=== PATIENT | female | born 1975 | race Caucasian/White ===

== ENCOUNTER 2017-08-19 14:53 | Emergency (ER) | payer MEDICAID, OTHER ==
[~2017-08-19] VITALS: Ht 157.5 cm; Wt 77.1 kg
[2017-08-19 15:04] VITALS: BP 147/85
--- NOTE | 2017-08-19 15:13 | NUR ---
PT C/O ABD PAIN 11/26 SUDDEN ONSET THIS MORNING AFTER EATING BREAKFAST. MOE N/V/D.
--- NOTE | 2017-08-19 15:32 | NUR ---
DR BEARD AT BEDSIDE TO [facility]
[2017-08-19] MEDS ORDERED: DICYCLOMINE HCL LIQUID 10 MG/5 ML UDC PO ONE (15:40)
[2017-08-19] MEDS ORDERED: LIDOCAINE VISCOUS 2% 20 ML UDC PO ONE (15:40)
[2017-08-19] MEDS ORDERED: ALUMINUM HYD/MAG/SIMETHICONE 30 ML UDC PO ONE (15:40)
--- NOTE | 2017-08-19 15:55 | NUR ---
PT VOMITTING IN EMESIS BAG AFTER PO MEDICATION GIVEN PER ORDER. DR BEARD NOTIFIED
[2017-08-19] MEDS ORDERED: KETOROLAC 60 MG/2 ML VIAL IM ONE (16:05)
--- NOTE | 2017-08-19 16:36 | NUR ---
Patient appears to be resting comfortably in bed. Vital Signs within normal limits. Respirations even and unlabored.
--- NOTE | 2017-08-19 16:45 | NUR ---
us at bedside
--- NOTE | 2017-08-19 18:42 | NUR ---
PT RESTING IN BED SOMFOTABLY, STATES HE PAIN IS DECREASED TO A BEARABLE LEVEL. PENDING REEVAL BY
[2017-08-19 18:45] VITALS: BP 129/78
--- NOTE | 2017-08-19 18:46 | NUR ---
Patient discharged with v/s stable. Written and verbal after care instructions given and explained. Patient alert, oriented and verbalized understanding of instructions. Ambulatory with steady gait. All questions addressed prior to discharge. ID band removed. Patient advised to follow up with PMD. Rx of MOTRIN, PROTONIX given. Patient educated on indication of medication including possible reaction and side effects. Opportunity to ask questions provided and answered.
== END 2017-08-19 18:46 | disposition home or self-care (01) ==
LOC: MED 14:53
DX: K29.70 Gastritis, unspecified, without bleeding (principal)
CPT/HCPCS: 76705; 81002; 81025; 96372; 99284; J1885; Q0092

== ENCOUNTER 2018-01-06 17:30 | Inpatient (IN) | payer MEDICAID ==
[~2018-01-06] VITALS: Ht 152.4 cm; Wt 74.4 kg
[2018-01-06 17:42] VITALS: BP 120/89
--- NOTE | 2018-01-06 18:34 | NUR ---
PT AMBULATES TO BED 2
--- NOTE | 2018-01-06 18:44 | NUR ---
C/O ABDOMINAL PAIN SINCE WEDNESDAY, LAST BM WEDNESDAY, HEAD ACHE, DIZZY HX; DENIES RX; DENIES
--- NOTE | 2018-01-06 19:15 | NUR ---
Pt report given to KATHY HANKS . Transfer of care at this time.
--- NOTE | 2018-01-06 19:18 | NUR ---
PT SITTING UP IN BED, VITALS STABLE. PAIN LEVEL IS 9/10. MD NOTIFED. COMFORT MEASURES OFFERRED. PT TOLERATED WELL.
[2018-01-06] MEDS ORDERED: NACL 0.9% 1,000 ML IV SCH (20:36)
[2018-01-06] MEDS ORDERED: KETOROLAC 30 MG/ML VIAL IVP ONE (20:40)
[2018-01-06] MEDS ORDERED: ONDANSETRON 4 MG/2 ML VIAL IVP ONE (20:40)
[2018-01-06 21:27] LABS: WHITE BLOOD COUNT (AUTO) 8.1 K/uL (4.8-10.8)
[2018-01-06 21:28] LABS: HEMATOCRIT 35.5 % (36-48); HEMOGLOBIN 11.9 g/dL (12.0-16.0); MEAN CORPUSCULAR HEMOGLOBIN 30 pg (27-31); MEAN CORPUSCULAR HGB CONC 34 g/dL (33-37); RED BLOOD CELL COUNT(AUTO) 3.99 MIL/uL (4.20-5.40)
[2018-01-06 21:29] LABS: BASOPHILS % (AUTO) 0.1 % (0.0-2.0); EOSINOPHILS % (AUTO) 0.2 % (0.0-4.0); LYMPHOCYTES % (AUTO) 2.2 % (20.5-51.1); MONOCYTES % (AUTO) 0.5 % (1.7-9.3); NEUTROPHILS % (AUTO) 5.1 % (42.2-75.2); PLATELET COUNT (AUTO) 295 K/uL (140-450)
--- NOTE | 2018-01-06 21:30 | NUR ---
PT RESTING IN BED, PAIN IS 0/10. VITALS STABLE.
[2018-01-06 21:42] LABS: ANION GAP 10.8 (8-16); CARBON DIOXIDE 25.4 mmol/L (21-32); CREATININE 0.6 mg/dL (0.6-1.3); POTASSIUM 4.2 mmol/L (3.5-5.1)
[2018-01-06 21:55] LABS: ALBUMIN 3.3 g/dL (3.4-5.0); TOTAL BILIRUBIN 0.2 mg/dL (0.0-1.0)
[2018-01-06] MEDS ORDERED: PIPERACILLIN/TAZOBACTAM 3.375 GM in DEXTROSE 5% 50 ML IV ONE (22:05)
[2018-01-06] MEDS ORDERED: KETOROLAC 15 MG/ML VIAL IVP PRN (22:10)
[2018-01-06] MEDS ORDERED: DOCUSATE SODIUM 100 MG GELCAP PO PRN (22:10)
[2018-01-06] MEDS ORDERED: MORPHINE SULFATE 2 MG/ML SYR IVP PRN (22:10)
[2018-01-06] MEDS ORDERED: ACETAMINOPHEN 325 MG TAB PO PRN (22:10)
[2018-01-06] MEDS ORDERED: PIPERACILLIN/TAZOBACTAM 3.375 GM VIAL IV ONE (22:14)
--- NOTE | 2018-01-06 22:45 | NUR ---
PT SITTING UP IN BED, VITALS STABLE. WAITING FOR TRANSFER TO [facility].
[2018-01-06 22:54] LABS: PROTHROMBIN TIME 9.9 secs (10.8-13.4)
--- NOTE | 2018-01-06 23:10 | NUR ---
Pt report given to KAITLYNN CHAVEZ. Transfer of care at this time.VITALS STABLE
--- NOTE | 2018-01-06 23:10 | NUR ---
PT ARRIVED ON UNIT VIA WHEELCHAIR WITH ER NURSE. PT ABLE TO SELF TRANSFER FROM WHEELCHAIR TO BED. PT IN STABLE CONDITION. PT IS A/O X4. SKIN IS INTACT. IV ACCESS IN L AC 20G, SALINE LOCKED. PT HAS NO C/O PAIN AT THIS TIME. MRSA SWAB DONE. ORIENTED PT TO ROOM AND CALL LIGHT. BED IS LOCKED, LOW POSITION AND SIDE RAILS UP X2. BOARD UPDATED. WILL CONTINUE TO MONITOR.
--- NOTE | 2018-01-06 23:10 | NUR ---
Patient will be admitted to care of DR. REYNOLDS. Admited to MED SURG. Will go to room 120A. Belongings list completed. Report to aniket webster. vitals stable.
[2018-01-06 23:20] LABS: MAGNESIUM 2.2 mg/dL (1.8-2.4); PHOSPHORUS 3.7 mg/dL (2.5-4.9); THYROID STIMULATING HORMONE 1.7 uIU/mL (0.34-3.74)
[2018-01-06 23:39] LABS: APPEARANCE,URINE SL CLOUDY (CLEAR); BILIRUBIN,URINE NEGATIVE (NEGATIVE); BLOOD, URINE NEGATIVE (NEGATIVE); COLOR,URINE YELLOW (YELLOW); LEUKOCYTE ESTERASE ,URINE NEGATIVE (NEGATIVE); NITRITE, URINE NEGATIVE (NEGATIVE); UGLUCOSE NEGATIVE (NEGATIVE)
[2018-01-06 23:45] LABS: BARBITURATE, URINE NEG. ng/ml (NEG <=200); BENZODIAZEPINE, URINE NEG. ng/mL (NEG <=200); CANNABINOID, URINE NEG. ng/mL (NEG <=50); COCAINE, URINE NEG. ng/mL (NEG <=300); OPIATE, URINE NEG. ng/mL (NEG <=2000); PHENCYCLIDINE SCREEN,URINE NEG. ng/mL (NEG <=25)
[2018-01-07] MEDS: DEXT 5% /NACL 0.9% 1,000 ML IV SCH ×3 (00:26→16:54)
--- NOTE | 2018-01-07 00:26 | NUR ---
STARTED ORDERED BAG OF IVF. PT IN STABLE CONDITION. WILL CONTINUE TO MONITOR.
[2018-01-07 00:34] VITALS: BP 133/56
--- NOTE | 2018-01-07 02:35 | NUR ---
PT ASLEEP IN BED. NO SIGNS OR SYMPTOMS OF DISTRESS. WILL CONTINUE TO MONITOR.
[2018-01-07] MEDS ORDERED: PIPERACILLIN/TAZOBACTAM 3.375 GM VIAL IV ONE (03:58)
[2018-01-07] MEDS: PIPER/TAZO 3.375GM/D5W PREMIX 50 ML IV SCH ×3 (04:15→20:14)
--- NOTE | 2018-01-07 04:15 | NUR ---
ADMINISTERED SCHEDULED MEDICATION. PT TOLERATING WELL. WILL CONTINUE TO MONITOR.
--- NOTE | 2018-01-07 07:00 | NUR ---
RECEIVED PT REPORT AT BEDSIDE. PT IS AWAKE, A&OX4. NO C/O PAIN OR DISCOMFORT AT THIS TIME. IV SITE IS CLEAN AND PATENT, INFUSING D5NS 110 ML/HR. CALL LIGHT WITHIN REACH, BED LOW. WILL CONTINUE TO MONITOR.
--- NOTE | 2018-01-07 07:15 | NUR ---
ENDORSED PT TO DAY SHIFT NURSE FOR CONTINUITY OF CARE. PT IN STABLE CONDITION.
--- NOTE | 2018-01-07 08:40 | NUR ---
PATIENT HAS BEEN SCREENED AND CATEGORIZED HIGH NUTRITION RISK. PATIENT WILL BE SEEN WITHIN 1-2 DAYS OF ADMISSION. 01/07/18 01/08/[address]
[2018-01-07] MEDS: LACTOBACILLUS RHAMNOSUS GG 1 EACH CAP PO SCH (09:00)
[2018-01-07 10:24] VITALS: BP 98/58
[2018-01-07 11:07] LABS: BASOPHILS % (AUTO) 0.6 % (0.0-2.0); EOSINOPHILS # (AUTO) 0.2 K/uL (0-0.4); EOSINOPHILS % (AUTO) 2.4 % (0.0-4.0); HEMATOCRIT 33.9 % (36-48); HEMOGLOBIN 11.5 g/dL (12.0-16.0); LYMPHOCYTES # (AUTO) 1.8 K/uL (2.5-16.5); LYMPHOCYTES % (AUTO) 25.1 % (20.5-51.1); MEAN CORPUSCULAR HEMOGLOBIN 30 pg (27-31); MEAN CORPUSCULAR HGB CONC 34 g/dL (33-37); MEAN CORPUSCULAR VOLUME 87.4 fL (80-94); MONOCYTES # (AUTO) 0.4 K/uL (0.8-1.0); NEUTROPHILS # (AUTO) 4.8 K/uL (1.8-7.7); NEUTROPHILS % (AUTO) 65.9 % (42.2-75.2); PLATELET COUNT (AUTO) 262 K/uL (140-450); RED BLOOD CELL COUNT(AUTO) 3.87 MIL/uL (4.20-5.40); WHITE BLOOD COUNT (AUTO) 7.3 K/uL (4.8-10.8)
[2018-01-07] MEDS ORDERED: NACL 0.9% 250 ML IV SCH (11:25)
--- NOTE | 2018-01-07 11:45 | NUR ---
PT BP IS 98/57 AT THIS TIME. NO S/S OF DISTRESS. DR ROBERTS ORDERED A BOLUS OF NS. BOLUS INFUSING AT THIS TIME. WILL CONTINUE TO MONITOR PT.
--- NOTE | 2018-01-07 12:00 | NUR ---
OBTAINED CONSENT FROM PATIENT FOR THE APPENDECTOMY. BLUE FORECLOSURE HOME INSPECTOR PHONE WAS USED FOR LATVIAN LANGUAGE.
[2018-01-07 12:07] LABS: ANION GAP 10.5 (8-16); CARBON DIOXIDE 25.6 mmol/L (21-32); CREATININE 0.7 mg/dL (0.6-1.3); POTASSIUM 4.1 mmol/L (3.5-5.1)
[2018-01-07 12:15] LABS: CHOL/HDL RATIO 3.3 (1-4.5); MAGNESIUM 2.2 mg/dL (1.8-2.4); PHOSPHORUS 3.5 mg/dL (2.5-4.9)
--- NOTE | 2018-01-07 15:14 | NUR ---
01/07/18 RD INITIAL ASSESSMENT COMPLETED PLEASE REFER TO NUTRITION ASSESSMENT UNDER CARE ACTIVITY FOR ESTIMATED NUTRITIONAL NEEDS. 1. CONTINUE NPO MEDICALLY NECESSARY 2. IF/WHEN PT IS MEDICALLY STABLE CONSIDER ADVANCING DIET TO REGULAR TOLERATED. 3. RD TO FOLLOW-UP 3-5 DAYS, MODERATE RISK VIJAY MENJIVAR, RD
[2018-01-07 16:10] VITALS: BP 108/60
--- NOTE | 2018-01-07 17:30 | NUR ---
PT SEEN BY DR SHAFER.
--- NOTE | 2018-01-07 19:40 | NUR ---
PT REPORT GIVE AT BEDSIDE. FAMILY MEMBERS AT BEDSIDE. PT IS IN NO DISTRESS. CALL LIGHT WITHIN REACH.
--- NOTE | 2018-01-07 19:41 | NUR ---
REPORT RECEIVED FROM AM NURSE AT BEDSIDE. PT IN STABLE CONDITION. AAOX4. BOARD UPDATED. FAMILY AT BEDSIDE. IV SITE L AC 20G RUNNING D5NS AT 110ML/HR PATENT AND INTACT. SKIN WARM, DRY, AND INTACT WITH NO OPEN WOUNDS. BED LOCKED IN LOW POSITION. CALL DAVISON WITHIN REACH. SAFETY MEASURES IN PLACE. WILL CONTINUE TO MONITOR.
--- NOTE | 2018-01-07 20:14 | NUR ---
DALILA ARELLANO. PT TOLERATED WELL.
--- NOTE | 2018-01-07 21:55 | NUR ---
DR. SHAFER WANTS TO HAVE SURGERY DONE TONIGHT FOR APPENDECTOMY. LEAD CONSULTANT PUTTING PT ON OR BIG BOARD.
--- NOTE | 2018-01-07 22:45 | NUR ---
PT OFF UNIT TO OR FOR SURGERY. PT IN STABLE CONDITION.
[2018-01-07] MEDS ORDERED: BUPIVACAINE-MPF/EPI 0.25% 30 ML VIAL INJ ONE (23:01)
[2018-01-07] MEDS ORDERED: DEXAMETHASONE 4 MG/ML VIAL ONE (23:15)
[2018-01-07] MEDS ORDERED: DESFLURANE 240 ML BTL INH ONE (23:15)
[2018-01-07] MEDS ORDERED: NEOSTIGMINE 1:1000 10 MG/10 ML VIAL ONE (23:15)
[2018-01-07] MEDS ORDERED: SUCCINYLCHOLINE CHLORIDE 200 MG/10 ML VIAL IVP ONE (23:15)
[2018-01-07] MEDS ORDERED: GLYCOPYRROLATE 0.2 MG/ML VIAL ONE (23:15)
[2018-01-07] MEDS ORDERED: ROCURONIUM 50 MG/5 ML VIAL IV ONE (23:15)
[2018-01-07] MEDS ORDERED: PROPOFOL 200 MG/20 ML VIAL IV ONE (23:15)
[2018-01-07] MEDS ORDERED: ONDANSETRON 4 MG/2 ML VIAL ONE (23:15)
[2018-01-07] MEDS ORDERED: fentaNYL 0.05 MG/ML VIAL ONE (23:23)
[2018-01-07] MEDS ORDERED: HYDROmorphone PFS 2 MG/ML SYR ONE (23:23)
[2018-01-07] MEDS ORDERED: ONDANSETRON 4 MG/2 ML VIAL IVP PRN (23:40)
[2018-01-07] MEDS ORDERED: HYDROmorphone 1 MG/ML AMP IVP PRN (23:40)
[2018-01-08] MEDS: DEXT 5% /NACL 0.9% 1,000 ML IV SCH ×3 (01:28→19:51)
[2018-01-08 01:35] VITALS: BP 105/64
--- NOTE | 2018-01-08 01:35 | NUR ---
PT RETURNED FROM SURGERY. REPORT RECEIVED FROM OR NURSE. PT IN STABLE CONDITION. VS BP 105/64, HR 60, O2 SAT 90, TEMP 98.8, RR 18. PT HAS 3 INCISIONS IN THE ABDOMEN. OR NURSE NOTIFIED TO KEEP PT NPO FOR ALL OF WEDNESDAY. WILL ADVANCE TO CLEAR LIQUID ON WEDNESDAY.
--- NOTE | 2018-01-08 01:40 | NUR ---
PT O2 SATURATION BETWEEN 88% AND 90%. 2L VIA NC APPLIED UNTIL O2 SATURATION INCREASES.
--- NOTE | 2018-01-08 02:00 | NUR ---
PT O2 SATURATION TO 99% ON 2L VIA NC.
[2018-01-08 04:00] VITALS: BP 114/67
--- NOTE | 2018-01-08 04:00 | NUR ---
PT VS STABLE. PT VERY THIRSTY BUT DR. SHAFER ORDERED TO KEEP NPO THROUGHOUT WEDNESDAY AND ADVANCE TO A CLEAR LIQUID DIET ON WEDNESDAY.
[2018-01-08] MEDS: PIPER/TAZO 3.375GM/D5W PREMIX 50 ML IV SCH ×3 (04:26→20:01)
--- NOTE | 2018-01-08 04:26 | NUR ---
DALILA ARELLANO. PT TOLERATED WELL.
[2018-01-08] MEDS ORDERED: PIPER/TAZO 3.375GM/D5W PREMIX 50 ML IV SCH (05:00)
--- NOTE | 2018-01-08 05:00 | NUR ---
PT SLEEPING COMFORTABLY IN BED. NO S/S OF DISTRESS NOTED. NO COMPLAINTS OF PAIN. WILL CONTINUE TO MONITOR.
[2018-01-08] MEDS: HYDROcodone/APAP 5/325 MG 1 TAB TAB PO PRN ×2 (06:29→16:51)
--- NOTE | 2018-01-08 06:29 | NUR ---
NORCO GIVEN FOR 6/10 PAIN AT THE ABDOMINAL SITE AND HEADACHE. PT TOLERATED WELL.
--- NOTE | 2018-01-08 07:15 | NUR ---
RECEIVED REPORT FROM NIGHTSHIFT NURSE AT BEDSIDE. PATIENT IS ASLEEP AT THIS TIME BUT AROUSABLE TO NAME. PATIENT IS ALERT AND ORIENTED X4. NO DISTRESS NOTED AT THIS TIME. NO PAIN NOTED. PATIENT HAS AN IV NOTED ON HER LEFT AC 20G RUNNING D5 NORMAL SALINE AT 110 ML/HR. PATIENT HAS A HOWARD CATHETER IN PLACE THAT WAS INSERTED DURING SURGERY. PATIENT UNDERSTANDS THAT SHE IS NPO AT THIS TIME. APPROPRIATE SIGNS PLACED OUTSIDE OF PATIENT'S ROOM. LOWERED BED TO LOWEST SETTING. CALL LIGHT WITHIN REACH OF PATIENT. WILL CONTINUE TO MONITOR PATIENT.
--- NOTE | 2018-01-08 07:15 | NUR ---
REPORT GIVEN TO AM NURSE AT BEDSIDE. PT IN STABLE CONDITION.
[2018-01-08 07:17] LABS: BASOPHILS % (AUTO) 0.1 % (0.0-2.0); HEMATOCRIT 35.9 % (36-48); HEMOGLOBIN 12.1 g/dL (12.0-16.0); LYMPHOCYTES # (AUTO) 0.6 K/uL (2.5-16.5); MEAN CORPUSCULAR HEMOGLOBIN 30 pg (27-31); MEAN CORPUSCULAR HGB CONC 34 g/dL (33-37); MEAN CORPUSCULAR VOLUME 87.7 fL (80-94); MONOCYTES # (AUTO) 0.1 K/uL (0.8-1.0); MONOCYTES % (AUTO) 1.1 % (1.7-9.3); NEUTROPHILS # (AUTO) 11.9 K/uL (1.8-7.7); NEUTROPHILS % (AUTO) 93.8 % (42.2-75.2); PLATELET COUNT (AUTO) 285 K/uL (140-450); RED BLOOD CELL COUNT(AUTO) 4.09 MIL/uL (4.20-5.40); RED CELL DISTRIBUTION WIDTH 12.8 % (11.6-13.7); WHITE BLOOD COUNT (AUTO) 12.7 K/uL (4.8-10.8)
[2018-01-08 07:18] LABS: ANION GAP 9.1 (8-16); CARBON DIOXIDE 27.2 mmol/L (21-32); CREATININE 0.7 mg/dL (0.6-1.3); POTASSIUM 4.3 mmol/L (3.5-5.1)
[2018-01-08 07:21] LABS: MAGNESIUM 1.9 mg/dL (1.8-2.4); PHOSPHORUS 3.3 mg/dL (2.5-4.9)
[2018-01-08 08:00] VITALS: BP 116/69
[2018-01-08] MEDS: LACTOBACILLUS RHAMNOSUS GG 1 EACH CAP PO SCH (08:20)
[2018-01-08] MEDS: ONDANSETRON 4 MG/2 ML VIAL IM/IVP PRN (08:21)
--- NOTE | 2018-01-08 08:35 | NUR ---
PATIENT TOOK AM MEDICATIONS. ADMINISTERED ZOFRAN TO PATIENT DUE TO NAUSEA. ADMINISTERED ZOFRAN BEFORE GIVING CULTURELLE PO MEDICATIONS.
[2018-01-08 12:00] VITALS: BP 112/62
--- NOTE | 2018-01-08 12:20 | NUR ---
PATIENT RESTING AT THIS TIME. WILL CONTINUE TO MONITOR PATIENT.
--- NOTE | 2018-01-08 13:00 | NUR ---
DRESSINGS DRY AND INTACT. WILL CONTINUE TO MONITOR PATIENT.
--- NOTE | 2018-01-08 15:55 | NUR ---
PATIENT ASLEEP. NO DISTRESS NOTED.
[2018-01-08 16:00] VITALS: BP 111/60
--- NOTE | 2018-01-08 19:15 | NUR ---
GAVE REPORT TO NIGHTSHIFT NURSE. PATIENT IN STABLE CONDITION.
--- NOTE | 2018-01-08 19:15 | NUR ---
RECEIVED BEDSIDE REPORT FROM DAY SHIFT NURSE CATHERINE, PT IN BED ON 2 L VIA NC. V/S TAKEN B/P: 105/62 HR: 58. B/P WITHIN PTS BASELINE, RESIDENTS AWARE OF BRADYCARDIA ACCORDING TO DAY SHIFT NURSE. IV IN LEFT AC, 20 G, PATENT, DRESSING INTACT, INFUSING D5 AND 1/2 NS AT 110 ML/HR. PT IS NPO. FAMILY AT BEDSIDE, NO SIGNS ACUTE DISTRESS, PT REPORT PAIN 3/10 IN ABDOMEN. WILL MEDICATE ACCORDING TO MD ORDER. 3 NOTED SURGICAL INCISION SITES IN ABDOMEN, SLIGHT DRIED BLOOD SEEN ON BANDAGES. EXPLAINED PLAN OF CARE, UPDATED BOARD, WILL CONTINUE TO MONITOR.
[2018-01-08 20:00] VITALS: BP 105/62
--- NOTE | 2018-01-08 20:01 | NUR ---
PT C/O PAIN IN ABDOMEN, 06/26, PREVENTING PT FROM RESTING. MEDICATED WITH TYLENOL FOR MILD PAIN ACCORDING TO MD ORDER. WILL CONTINUE TO MONITOR.
--- NOTE | 2018-01-08 21:01 | NUR ---
PT SLEEPING IN BED NO SIGNS OF DISTRESS. ZOSYN FINISHED INFUSING. IV INFUSING D5 AND 1/2 NS AT 110 ML/HR. WILL CONTINUE TO MONITOR.
--- NOTE | 2018-01-08 22:30 | NUR ---
PT SLEEPING IN BED, NO SIGNS OF ACUTE DISTRESS. IV SITE INTACT. WILL CONTINUE TO MONITOR.
[2018-01-09] VITALS: BP 125/59
[2018-01-09] MEDS: HYDROcodone/APAP 5/325 MG 1 TAB TAB PO PRN (00:51)
--- NOTE | 2018-01-09 00:51 | NUR ---
PT C/O PAIN 6/10 IN ABDOMEN THAT IS PREVENTING PT FROM RESTING. ASKED DR BRADY IF OKAY TO MEDICATE WITH PO NORCO. DR BRADY STATED OKAY TO GIVE NORCO. WILL MEDICATE ACCORDING TO MD ORDER.
--- NOTE | 2018-01-09 02:40 | NUR ---
PT ASLEEP IN BED NO SIGNS OF DISTRESS, CALL LIGHT WITHIN REACH, WILL CONTINUE TO MONITOR.
[2018-01-09 04:00] VITALS: BP 108/66
[2018-01-09] MEDS: DEXT 5% /NACL 0.9% 1,000 ML IV SCH ×2 (04:40→14:24)
[2018-01-09] MEDS: PIPER/TAZO 3.375GM/D5W PREMIX 50 ML IV SCH ×2 (04:40→12:00)
--- NOTE | 2018-01-09 04:45 | NUR ---
DUE ZOSYN GIVEN, PT TOLERATING WELL, V/S TAKEN ALL WITHIN PTS BASELINE. DENIES PAIN. CALL LIGHT WITHIN REACH, WILL CONTINUE TO MONITOR.
--- NOTE | 2018-01-09 05:53 | NUR ---
PT SLEEPING IN BED NO SIGNS OF DISTRESS, CALL LIGHT WITHIN REACH, WILL CONTINUE TO MONITOR.
--- NOTE | 2018-01-09 07:11 | NUR ---
ENDORSED PT TO DAY SHIFT NURSE, PT STABLE.
--- NOTE | 2018-01-09 07:11 | NUR ---
RECEIVED REPORT FROM NIGHTSHIFT NURSE AT BEDSIDE. PATIENT IS ASLEEP AT THIS TIME. NO COMPLAINTS OF PAIN. NO DISTRESS NOTED. PATIENT ON 2L O2 VIA NC. DISCUSSED WITH PATIENT PLAN OF CARE TODAY AND THAT SHE NEEDS TO WALK. PATIENT VERBALIZED UNDERSTANDING. PATIENT HAS D5 NS RUNNING AT 110 ML/HR INTO IV SITE AT LEFT AC 20G. LOWERED BED. CALL LIGHT WITHIN REACH OF PATIENT. WILL CONTINUE TO MONITOR PATIENT.
[2018-01-09 07:12] LABS: BASOPHILS # (AUTO) 0.1 K/uL (0.00-0.22); BASOPHILS % (AUTO) 0.7 % (0.0-2.0); EOSINOPHILS # (AUTO) 0.1 K/uL (0-0.4); EOSINOPHILS % (AUTO) 0.6 % (0.0-4.0); HEMATOCRIT 31.7 % (36-48); HEMOGLOBIN 10.9 g/dL (12.0-16.0); LYMPHOCYTES # (AUTO) 1.9 K/uL (2.5-16.5); LYMPHOCYTES % (AUTO) 17.8 % (20.5-51.1); MEAN CORPUSCULAR HEMOGLOBIN 30 pg (27-31); MEAN CORPUSCULAR HGB CONC 34 g/dL (33-37); MEAN CORPUSCULAR VOLUME 86.7 fL (80-94); MONOCYTES # (AUTO) 0.6 K/uL (0.8-1.0); MONOCYTES % (AUTO) 5.1 % (1.7-9.3); NEUTROPHILS # (AUTO) 8.3 K/uL (1.8-7.7); NEUTROPHILS % (AUTO) 75.8 % (42.2-75.2); PLATELET COUNT (AUTO) 277 K/uL (140-450); RED BLOOD CELL COUNT(AUTO) 3.66 MIL/uL (4.20-5.40); RED CELL DISTRIBUTION WIDTH 12.7 % (11.6-13.7); WHITE BLOOD COUNT (AUTO) 10.9 K/uL (4.8-10.8)
[2018-01-09 07:33] LABS: ANION GAP 8.5 (8-16); CARBON DIOXIDE 29.2 mmol/L (21-32); CREATININE 0.8 mg/dL (0.6-1.3); POTASSIUM 3.7 mmol/L (3.5-5.1)
[2018-01-09 07:49] LABS: PHOSPHORUS 3.1 mg/dL (2.5-4.9)
[2018-01-09 08:00] VITALS: BP 113/61
[2018-01-09] MEDS: LACTOBACILLUS RHAMNOSUS GG 1 EACH CAP PO SCH (09:01)
--- NOTE | 2018-01-09 09:22 | NUR ---
PATIENT RESTING. WILL CONTINUE TO MONITOR PATIENT.
--- NOTE | 2018-01-09 10:41 | NUR ---
PATIENT RESTING AT THIS TIME. NO DISTRESS NOTED. WILL CONTINUE TO MONITOR PATIENT.
--- NOTE | 2018-01-09 11:56 | NUR ---
PATIENT SAT UP IN CHAIR AT THIS TIME. PATIENT ADVANCED TO FULL LIQUID DIET. WILL MONITOR PATIENT FOR ANY SIGNS OF NAUSEA OF VOMITTING.
[2018-01-09] MEDS: ONDANSETRON 4 MG/2 ML VIAL IM/IVP PRN (12:04)
--- NOTE | 2018-01-09 12:04 | NUR ---
PATIENT PRESENTS WITH NAUSEA. ADMINISTERED ZOFRAN BEFORE PATIENT EATS LUNCH.
[2018-01-09 12:25] VITALS: BP 115/67
--- NOTE | 2018-01-09 12:57 | NUR ---
PATIENT WENT BACK TO BED. PATIENT COMPLAINS OF MINIMAL NAUSEA. VOMITUS BLUE BAG PROVIDED. WILL CONTINUE TO MONITOR PATIENT.
--- NOTE | 2018-01-09 14:05 | NUR ---
REMOVED PATIENT'S HOWARD CATHETER WITH TIP INTACT. PATIENT TOLERATED WELL. WILL MONITOR URINE OUTPUT.
--- NOTE | 2018-01-09 14:18 | NUR ---
PATIENT ABLE TO WALK AT THIS TIME BUT COMPLAINS OF PAIN IN ABDOMEN WHILE WALKING. PATIENT DOES NOT COMPLAIN OF ANY NAUSEA OR VOMITTING.
--- NOTE | 2018-01-09 14:21 | NUR ---
PATIENT O2 SATURATION IS 96 % POST WALKING. PATIENT DOES NOT O2 AT THIS TIME. WILL CONTINUE TO MONITOR PATIENT.
--- NOTE | 2018-01-09 14:58 | NUR ---
PATIENT ABLE TO AMBULATE TO AND FROM RESTROOM WITHOUT ASSISTANCE. PATIENT ABLE TO URINATE.
--- NOTE | 2018-01-09 15:48 | NUR ---
PATIENT SIGNED DISCHARGE INSTRUCTIONS. TOOK PICTURE OF PATIENT'S INCISIONS. PHOTOS PLACED IN CHART. REPLACED PATIENT'S BANDAGES. DISCONTINUED PATIENT'S IV LINE. REMOVED PATIENT'S IDENTIFICATION BAND.
--- NOTE | 2018-01-09 16:00 | NUR ---
PATIENT GATHERED ALL BELONGINGS. PATIENT AMBULATED OFF THE UNIT IN STABLE CONDITION.
== END 2018-01-09 16:00 | disposition home or self-care (01) | DRG 233 ==
LOC: MED 17:30 → MTU 22:10
PROVIDERS: ADMIT General Practice; ATTEND General Practice
PROC: 0DTJ4ZZ Resection of Appendix, Percutaneous Endoscopic Approach (ICD-10-PCS; principal; 2018-01-08)
DX: K35.3 Acute appendicitis with localized peritonitis (principal); E87.8 Other disorders of electrolyte and fluid balance, not elsewhere classified; E44.1 Mild protein-calorie malnutrition; R74.0 Nonspecific elevation of levels of transaminase and lactic acid dehydrogenase [LDH]; Z68.32 Body mass index [BMI] 32.0-32.9, adult; E66.9 Obesity, unspecified; Z83.3 Family history of diabetes mellitus; Z82.49 Family history of ischemic heart disease and other diseases of the circulatory system
CPT/HCPCS: 36415; 71045; 80048; 80053; 80305; 81003; 82150; 83036; 83690; 83735; 83880; 84100; 84443; 85025; 85610; 85730; 86886; 86900; 86901; 87081; 96361; 96365; 96375; 99285; J0330; J1100; J1170; J1885; J2405; J2543; J2704; J2710; J3010; J3490; J7030; J7042; J7060